=== PATIENT | female | born 1985 | race Two or more races ===

== ENCOUNTER 2020-07-30 10:24 | Emergency (ER) | payer OTHER ==
[~2020-07-30] VITALS: Ht 162.6 cm; Wt 68.0 kg
[2020-07-30] MEDS ORDERED: VISTARIL50 MG PO (14:56)
[2020-07-30] MEDS ORDERED: SALINE NASAL SP88 ML (15:09)
== END 2020-07-30 15:16 | disposition home or self-care (01) ==
LOC: ER 10:24
DX: R07.89 Other chest pain (principal); F41.0 Panic disorder [episodic paroxysmal anxiety]